=== PATIENT | female | born 1980 | race Caucasian/White ===

== ENCOUNTER → 2018-05-10 | Outpatient (CLI) | payer OTHER ==
[~2018-05-10] MED LIST: ACYC-50 PO; CEF300 PO; CHOL10005 PO; CYAN500T38 PO; EPIN0.3P15 IM; LEVO1TAB31 PO; PREN1TAB50
== END ==
LOC: LAB 08:27
PROVIDERS: ATTEND Obstetrics & Gynecology
DX: R53.83 Other fatigue (principal)
CPT/HCPCS: 36415; 82306; 84443

== ENCOUNTER → 2018-07-23 | Outpatient (CLI) | payer OTHER ==
--- NOTE | 2018-07-23 11:16 | RADIOLOGY IMAGING REPORT ---
FACILITY: [facility] - [place] PATIENT NAME: Mandi Clark : 1980 MR: [id number] V: [id number] EXAM DATE: ORDERING PHYSICIAN: MARQUIS LOCKE TECHNOLOGIST: Location: [facility] Patient: Mandi Clark : 1980 Visit/Account:[id number] Date of Sevice: 07/23/2018 3 views left hand Indication: Hyperextended thumb two months ago Comparison: None Available. Findings: The distal radius and ulna are intact. Radiocarpal and intercarpal articulations are within normal l imits. No significant underlying degenerative change. No evidence of acute fracture or destructiv e osseous process. IMPRESSION: 1. No acute bony finding involving the left hand Report Dictated By: Juan Diego Caruso MD at 07/23/2018 11:11 AM Report E-Signed By: Juan Diego Caruso MD at 07/23/2018 11:12 AM WSN:[email or web address]
== END ==
LOC: RAD 10:03
PROVIDERS: ATTEND Orthopaedic Surgery Hand Surgery
DX: M79.645 Pain in left finger(s) (principal)

== ENCOUNTER 2018-09-12 14:40 | Emergency (ER) | payer OTHER ==
[2018-09-12] MEDS ORDERED: CIPROFLOXACIN 500 MG TAB PO ONE (14:50)
--- NOTE | 2018-09-12 14:55 | ER Report ---
History and Physical Time Seen By MD: 14:50 HPI/ROS CHIEF COMPLAINT: Exposure to bacterial meningitis HISTORY OF PRESENT ILLNESS: This is a 37-year-old female who presents to emergency department for exposure to a patient that had bacterial meningitis. Patient is otherwise healthy, no complaints, no fevers or chills. No nausea or vomiting. No chest pain or shortness breath. No rashes. Allergies: Coded Allergies: pseudoephedrine (Verified Allergy, Severe, hives, SOB, 07/25/17) Penicillins (Verified Allergy, Mild, rash, 07/25/17) codeine (Verified Allergy, Mild, hives, 07/25/17) Home Meds Active Scripts Levonorgestrel-Eth Estradiol (AVIANE) 1 Each Tablet, 1 TAB PO QDAY, #3 PACK 5 Refills Take continuously by skipping placebo pills. Prov:SUGAR HOLGUIN MD 05/10/18 Epinephrine (EPIPEN 2-CATALINO) 0.3 Mg/0.3 Ml Pen.injctr, 0.3 MG IM PRN, #1 BOX Prov:EVE NUNEZ JR, MD 07/25/17 Reported Medications Acyclovir (ACYCLOVIR) 400 Mg Tablet, 400 MG PO BID, TAB 05/10/18 Cholecalciferol (Vitamin D3) (VITAMIN D3) Unknown Strength Tablet, PO, TAB 07/25/17 Cyanocobalamin (Vitamin B-12) (VITAMIN B-12) Unknown Strength Tablet, PO 07/25/17 Vit #76/Iron,Carb/FA (Pnv 29-1 Tablet) 1 Each Tablet 07/25/17 Past Medical/Surgical History Patient has a past medical and surgical history of allergic rhinitis, migraines, asthma, bunionectomy. Reviewed Nurses Notes: Yes Smoking Status: Never Smoker Constitutional Vital Sign - Last 24 Hours 09/12/18 14:46 Temp 98.3 O2 Delivery Room Air Physical Exam General appearance: Alert no distress. Respiratory: Chest is non tender, lungs are clear to auscultation. Cardiac: Regular rate and rhythm. DIFFERENTIAL DIAGNOSIS: After history and physical exam differential diagnosis was considered for potential meningitis exposure. Medical Decision Making ED Course/Re-evaluation ED Course The patient was admitted to room. A history and physical were obtained. Differential diagnoses were considered. The patient was given the recommended prophylactic dose of ciprofloxacin. The patient had no other questions or concerns at this time and was discharged home. Decision to Disposition Date: Sep 12, 2018 Decision to Disposition Time: 14:54 Depart Departure Latest Vital Signs Vital Signs Date Time Temp Pulse Resp B/P (MAP) Pulse Ox O2 Delivery O2 Flow Rate FiO2 09/12/18 14:46 98.3 Room Air Impression: Primary Impression: Meningitis exposure Condition: Improved Disposition: HOME OR SELF-CARE Additional Instructions: Take the antibiotics as prescribed. Follow-up with your primary care provider. Return to the ER for any other concerns worsening symptoms. ALVERTO HERNANDEZ CUSTOMER [employer]PERATIONS INTERN-BC Sep 12, 2018 14:55
== END 2018-09-12 15:17 | disposition home or self-care (01) ==
LOC: ER 15:15
DX: Z20.811 Contact with and (suspected) exposure to meningococcus (principal)
CPT/HCPCS: 99283

== ENCOUNTER → 2018-09-19 | Outpatient (CLI) | payer OTHER ==
[~2018-09-19] MED LIST changes: +SULF-198 PO
== END ==
LOC: LAB 08:43
PROVIDERS: ATTEND Nurse Practitioner Primary Care
DX: N39.0 Urinary tract infection, site not specified (principal)
CPT/HCPCS: 87088

== ENCOUNTER → 2018-09-21 | Outpatient (CLI) | payer OTHER ==
[~2018-09-21] MED LIST changes: +TAMS0.4C25 PO
--- NOTE | 2018-09-21 16:08 | RADIOLOGY IMAGING REPORT ---
FACILITY: [facility] - [place] PATIENT NAME: Mandi Clark : 1980 MR: [id number] V: [id number] EXAM DATE: ORDERING PHYSICIAN: ALONSO HRENANDEZ TECHNOLOGIST: Location: [facility] - [place] Patient: Mandi Clark : 1980 Visit/Account:[id number] Date of Sevice: 09/21/2018 CT ABDOMEN PELVIS W/O CON HISTORY: Bladder irritability, right flank pain TECHNIQUE: Axial images acquired through the abdomen/pelvis. Coronal and sagittal reformatting also performed. No IV contrast administered.Dose Lowering Technique One of the following dose optimization techniques was utilized in the performance of this exam: Autom ated exposure control; adjustment of the mA and/or kV according to the patient's size; or use of an i terative reconstruction technique. Specific details can be referenced in the facility's radiology C T exam operational policy. COMPARISON: None. FINDINGS: Visualized lung bases: Negative. Hepatobiliary: Gallbladder severely contracted which may be related to a recent meal Spleen: Negative. Adrenals: Negative. Pancreas: Negative. Kidneys ureters and bladder: There is a 3.5 mm nonobstructing calculus in mid pole calyx of the left kidney. There is no evidence of hydronephrosis or hydroureter. There are numerous calcifications se en within the pelvis likely representing phleboliths. Possibility of a distal right ureteral calculu s cannot be entirely excluded given the clinical history of right flank pain. Genitalia: Anteverted uterus GI: Appendix is not definitively seen although no inflammatory change identified in the right lower quadrant Vessels/spaces/nodes: Negative. Bones/soft tissues: Negative. Additional findings: None pertinent. IMPRESSION: There is a 3.5 mm nonobstructing calculus mid pole calyx the left kidney There is no evidence of hydronephrosis or hydroureter. There are numerous calcination occasions with in the pelvis likely representing phleboliths although the possibility of a distal right ureteral chau culus cannot be entirely excluded given the clinical history of right flank pain. If this remains of strong clinical concern a repeat CT of abdomen pelvis with contrast including delayed imaging throug h the ureters recommended for further evaluation The appendix is not definitively seen although no inflammatory changes identified in the right lower quadrant Results were called to ALONSO HERNANDEZ at 09/21/2018 4:03 PM. Report Dictated By: Rakel Maynard MD at 09/21/2018 3:55 PM Report E-Signed By: Rakel Maynard MD at 09/21/2018 4:04 PM WSN:[email or web address]
== END ==
LOC: CT 15:32
PROVIDERS: ATTEND Nurse Practitioner Primary Care
DX: N20.0 Calculus of kidney (principal)
CPT/HCPCS: 74176

== ENCOUNTER → 2018-09-24 | Outpatient (CLI) | payer OTHER | LOC: LAB 10:50 | PROVIDERS: ATTEND Nurse Practitioner Primary Care | DX: N20.0 Calculus of kidney (principal) | CPT/HCPCS: 36415; 82310; 83735; 83970; 84100; 84550 ==

== ENCOUNTER → 2018-09-30 | Outpatient (CLI) | payer OTHER | LOC: LAB 08:21 | PROVIDERS: ATTEND Nurse Practitioner Primary Care | DX: Z87.442 Personal history of urinary calculi (principal) | CPT/HCPCS: 82340; 82507; 83945; 84560 ==

== ENCOUNTER → 2018-11-01 | Outpatient (CLI) | payer OTHER ==
[~2018-11-01] MED LIST changes: +CETI10CA8 PO; +NORG1TAB94 PO
--- NOTE | 2018-11-01 12:15 | RADIOLOGY IMAGING REPORT ---
FACILITY: [facility] - [place] PATIENT NAME: Mandi Clark : 1980 MR: [id number] V: [id number] EXAM DATE: ORDERING PHYSICIAN: EDVIN LUI TECHNOLOGIST: Location: [facility] Patient: Mandi Clark : 1980 Visit/Account:[id number] Date of Sevice: 11/01/2018 KUB SINGLE VIEW ABDOMEN HISTORY: kidney stone Comparison made to a CT scan from 09/21/2018 FINDINGS: Calcific density measuring approximately 3 mm overlying the left 12th rib compatible with the stone s een on the CT scan within the left mid kidney. No additional calculi identified. Numerous phlebolit hs in the pelvis. Nonspecific bowel gas pattern. Bony structures unremarkable. IMPRESSION: 1. Left renal calculus reidentified comparable to the CT scan findings. Phleboliths in the pelvis. Report Dictated By: Gonzalo Walls MD at 11/01/2018 12:06 PM Report E-Signed By: Gonzalo Walls MD at 11/01/2018 12:11 PM WSN:[email or web address]
== END ==
LOC: RAD 10:55
PROVIDERS: ATTEND Urology
DX: N20.0 Calculus of kidney (principal)
CPT/HCPCS: 74018

== ENCOUNTER → 2018-12-18 | Outpatient (REF) ==
[2018-12-18 08:37] LABS: LDL CHOLESTEROL 61 mg/dl
== END ==
DX: Z02.9 Encounter for administrative examinations, unspecified (principal)